=== PATIENT | female | born 1995 | race Caucasian/White ===

== ENCOUNTER 2018-11-19 10:42 | Emergency (ER) | payer OTHER ==
--- NOTE | 2018-11-19 10:56 | ER Report ---
History and Physical Time Seen By MD: 10:56 Hx. of Stated Complaint: RIGHT ANKLE INJURY LAST NIGHT HPI/ROS CHIEF COMPLAINT: Right ankle pain HISTORY OF PRESENT ILLNESS: 23-year-old female patient presents to emergency room with complaint of right ankle pain. Patient states that she was at the bar last night, she was leaning back on the stool to talk with somebody with the stool slipped out from underneath her. She states she landed with her right foot underneath her leg. She states that since then she's been having significant amounts of pain to the right ankle. She states that she's not been able to ambulate without assistance. She states that she has pain that seems to be worse on the lateral malleolus. Patient states she does have some tingling to her great toe. She states she is not taking any medication for this. She denies hitting her head, having any neck, back or head pain. Allergies: Coded Allergies: Penicillins (Verified Allergy, Unknown, 11/19/18) Home Meds Active Scripts Hydrocodone Bit/Acetaminophen (HYDROCODON-ACETAMINOPHEN 5-325) 1 Each Tablet, 1 EACH PO Q4-6H PRN for PAIN, #8 TAB Prov:BINU NICHOLSON OCEANOGRAPHIC METEOROLOGIST 11/19/18 Past Medical/Surgical History Patient has a past medical history of chronic acne, alcohol use. Patient denies any surgical history. Reviewed Nurses Notes: Yes Hx Alcohol Use: Yes Constitutional Vital Sign - Last 24 Hours 11/19/18 10:50 Temp 97.9 Pulse 106 Resp 20 B/P (MAP) 116/70 Pulse Ox 95 O2 Delivery Room Air Physical Exam General appearance: Alert no distress. Respiratory: Chest is non tender, lungs are clear to auscultation. Cardiac: Regular rate and rhythm. Musculoskeletal: Patient does have swelling and tenderness to the lateral malleolus. She does have some swelling and mild tenderness to the medial malleolus. No obvious bruising noted. DIFFERENTIAL DIAGNOSIS: After history and physical exam differential diagnosis was considered for contusion, sprain, fracture. Medical Decision Making EKG/Imaging Imaging ANKLE 2 VIEW RIGHT HISTORY: Fall. Ankle pain. COMPARISON: None FINDINGS: Nondisplaced oblique fracture of the lateral malleolus best seen on lateral image. Talar dome is smooth in contour. Bohler angle is well maintained. Base of the 5th metatarsal is intact. Diffuse soft tissue swelling at the ankle. IMPRESSION: 1. Nondisplaced oblique fracture of the lateral malleolus Report Dictated By: Charly Luna MD at 11/19/2018 12:03 PM Report E-Signed By: Charly Luna MD at 11/19/2018 12:04 PM ED Course/Re-evaluation ED Course Patient was admitted to an exam room, history and physical were obtained. Differential diagnoses were considered. On examination lungs are clear, heart is regular, patient has tenderness to the lateral malleolus, also has swelling and tenderness to the medial malleolus. X-rays done of the right ankle which showed a nondisplaced fracture of the right distal fibula. I discussed the findings with the patient. We will go ahead and place her in a walking boot, we will have her limit her activity by pain. She is use crutches to and below. I would like her to follow-up with a orthopedist when she returns home to [place]. Patient will be given a limited supply of pain medication. Patient verbalized understanding and agreement with plan. Decision to Disposition Date: Nov 19, 2018 Decision to Disposition Time: 12:20 Depart Departure Latest Vital Signs Vital Signs Date Time Temp Pulse Resp B/P (MAP) Pulse Ox O2 Delivery O2 Flow Rate FiO2 11/19/18 10:50 97.9 106 20 116/70 95 Room Air Impression: Primary Impression: Fibula fracture Condition: Improved Disposition: HOME OR SELF-CARE New Scripts Hydrocodone Bit/Acetaminophen (HYDROCODON-ACETAMINOPHEN 5-325) 1 Each Tablet 1 EACH PO Q4-6H PRN for PAIN, #8 TAB Prov: BINU NICHOLSON OCEANOGRAPHIC METEOROLOGIST 11/19/18 Patient Instructions: Ankle Fracture (ED) Additional Instructions: Limit activity by pain. Ice the ankle 2-3 times a day for 20-30 minutes. Wear the walking boot when up ambulating, he may take it off to rest, sleep and bathe. Follow up with orthopedics back home, call tomorrow to make an appointment. Keep the splint dry, wrap it with a bag and tape to keep the water out. Return to the ER with uncontrollable pain or numbness to the foot. You may take Ibuprofen as needed for pain in addition to the pain medication. Don't take any additional Tylenol while on the pain medication. Problem Qualifiers Primary Impression: Fibula fracture Encounter type: initial encounter Fibula location: distal Fracture type: closed Fracture morphology: unspecified fracture morphology Laterality: right Qualified Codes: S82.831A - Other fracture of upper and lower end of right fibula, initial encounter for closed fracture BINU NICHOLSON Nov 19, 2018 10:56
[2018-11-19] MEDS ORDERED: HYDR-385 PO (11:18)
[2018-11-19] MEDS ORDERED: APAP/HYDROCODONE 325/5 TAB PO ONE (11:20)
[2018-11-19 12:00] VITALS: BP 102/68
--- NOTE | 2018-11-19 12:08 | RADIOLOGY IMAGING REPORT ---
FACILITY: [facility] [place] PATIENT NAME: Chary Ramey : 1995 MR: [id number] V: [id number] EXAM DATE: ORDERING PHYSICIAN: ROSALBA GOODEN TECHNOLOGIST: [facility] Patient: Chary Ramey : 1995 Visit/Account:[id number] Date of Sevice: 11/19/2018 ANKLE 2 VIEW RIGHT HISTORY: Fall. Ankle pain. COMPARISON: None FINDINGS: Nondisplaced oblique fracture of the lateral malleolus best seen on lateral image. Talar do me is smooth in contour. Bohler angle is well maintained. Base of the 5th metatarsal is intact. Diffu se soft tissue swelling at the ankle. IMPRESSION: 1. Nondisplaced oblique fracture of the lateral malleolus Report Dictated By: Charly Luna MD at 11/19/2018 12:03 PM Report E-Signed By: Charly Luna MD at 11/19/2018 12:04 PM WSN:[id number]
== END 2018-11-19 12:33 | disposition home or self-care (01) ==
LOC: ER 11:04
DX: S82.831A Other fracture of upper and lower end of right fibula, initial encounter for closed fracture (principal); W07.XXXA Fall from chair, initial encounter
CPT/HCPCS: 99283